=== PATIENT | female | born 1995 | race Caucasian/White ===

== ENCOUNTER 2022-09-15 11:58 | Day surgery (SDC) | payer OTHER ==
[~2022-09-15] VITALS: Ht 175.3 cm; Wt 85.9 kg
[~2022-09-15 11:58] MED LIST: NS 1,000 ML IV ONE
[2022-09-15] MEDS ORDERED: PANT20TA6 PO (12:58)
[2022-09-15] MEDS ORDERED: LIDOCAINE 2% 100MG/5ML SDV (FOR ANES.) As Ordered ONE (13:18)
[2022-09-15] MEDS ORDERED: propofoL 200 MG/20 ML VIAL As Ordered ONE ×3 (13:18→13:35)
[2022-09-15 14:11] VITALS: BP 123/71
== END 2022-09-15 14:15 | disposition home or self-care (01) ==
LOC: M OPP 11:58
PROVIDERS: ATTEND Internal Medicine Gastroenterology
DX: K22.89 Other specified disease of esophagus (principal)

== ENCOUNTER 2023-12-13 19:13 | Emergency (ER) | payer OTHER ==
[~2023-12-13] VITALS: Ht 175.3 cm; Wt 89.5 kg
[~2023-12-13 19:13] MED LIST changes: -NS 1,000 ML IV ONE; +PANT20TA6 PO
[2023-12-13] MEDS ORDERED: CEPH500C PO (20:52)
[2023-12-13] MEDS: CEPHALEXIN 500 MG CAP PO ONE (20:55)
[2023-12-13] MEDS: BOOSTRIX VACCINE (TETANUS/DIPHTH/ACEL. PERTUSSIS) 0.5ML SYR IM ONE (20:55)
[2023-12-13 20:56] VITALS: BP 137/86; TEMP 97.3; O2SAT 98
== END 2023-12-13 21:02 | disposition home or self-care (01) ==
LOC: M ED 19:13
DX: S61.011A Laceration without foreign body of right thumb without damage to nail, initial encounter (principal); Y92.019 Unspecified place in single-family (private) house as the place of occurrence of the external cause; Y93.9 Activity, unspecified; Y99.9 Unspecified external cause status; Z79.899 Other long term (current) drug therapy; Z23 Encounter for immunization